=== PATIENT | male | born 1985 | race African-American/Black ===

== ENCOUNTER 2018-12-27 20:46 | Emergency (ER) | payer OTHER ==
[~2018-12-27] VITALS: Ht 182.9 cm; Wt 81.7 kg
[~2018-12-27 20:46] MED LIST: AZITHROMYCIN 2250 MG PO; KEFLEX500 MG PO; NOHOMEMEDICATIONS; NORCO 5-325 TA1 EACH PO; NORFLEX100 MG PO; PREDNISONE 20 M20 MG PO; TRAMADOL 50 MG50 MG PO
[2018-12-27] MEDS ORDERED: NAPROSYN500 MG PO (21:35)
[2018-12-27 22:12] VITALS: BP 124/75
== END 2018-12-27 22:12 | disposition home or self-care (01) ==
LOC: ER 20:46
DX: S90.31XA Contusion of right foot, initial encounter (principal); W22.8XXA Striking against or struck by other objects, initial encounter; Y93.89 Activity, other specified; Y92.89 Other specified places as the place of occurrence of the external cause; Y99.8 Other external cause status